=== PATIENT | male | born 1975 | race Caucasian/White ===

== ENCOUNTER 2020-03-16 14:36 | Outpatient (CLI) | payer OTHER, BC, SELFPAY ==
--- NOTE | ~2020-03-16 | XR_ITS ---
EXAMINATION: XR chest 2V 03/16/2020 15:07 INDICATION: Cough and fever. PROCEDURE: 2 view chest COMPARISON: No prior studies for comparison. FINDINGS: The lungs are clear. The cardiomediastinal silhouette is within normal limits. There are no pleural effusions. There is no pneumothorax suspected. IMPRESSION: 1: NO ACUTE CARDIOPULMONARY DISEASE. Reviewed, dictated and finalized at location A.
== END 2020-03-16 14:37 | disposition home or self-care (01) ==
PROVIDERS: PCP Emergency Medicine; Visit Provider Emergency Medicine
DX: R05 Cough (principal)
CPT/HCPCS: 71046

== ENCOUNTER 2020-05-10 14:03 | Outpatient (CLI) | payer OTHER, BC, SELFPAY ==
--- NOTE | 2020-05-14 15:02 | WPDPFTINT ---
PFT Interpretation PFT Interpretation: DOS: 05/10/2020 REQUESTING: Dr. Rodrigo Yeung REASON FOR TESTING: Cough PULMONARY FUNCTION TESTS Results are not reproducible. The patient struggled during testing, was coughing and was short of breath, and was not able to exhale for 6 seconds as required for reliable results. Spirometry: FEV1 is 85%, 3.13 L, normal. FVC is 73%, mildly decreased. FEV1% is 87%, normal. YUW54-16% is 111%, normal. The patient did not have increase in flows after bronchodilator admisinstration. Lung volumes: TLC is 88%< normal. RV is 113%, normal. RV/TLC is increased at 49% consistent with air trapping. Airway resistance is increased, 206%. Diffusion: DLCO is 93%, normal. Flow volume loop: Not reproducible. IMPRESSION: Results are not reproducible due to coughing during the test. Normal FEV1 with normal lung volumes, mild air trapping and increased airway resistance. No response to bronchodialtor. Lack of response to bronchodilator should not preclude use if clinically indicated. Reyna Garcia MD
== END 2020-05-10 14:04 | disposition home or self-care (01) ==
PROVIDERS: PCP Emergency Medicine; Visit Provider Emergency Medicine
DX: R05 Cough (principal)
CPT/HCPCS: 94060; 94726; 94729

== ENCOUNTER 2020-06-20 02:08 | Outpatient (CLI) | payer OTHER, BC, SELFPAY ==
[2020-06-20 18:20] LABS: SARS-CoV-2 RNA PCR Negative
== END 2020-06-20 02:09 | disposition home or self-care (01) ==
LOC: ANHCOVIDDT 02:09
PROVIDERS: PCP Emergency Medicine; Visit Provider Internal Medicine Gastroenterology
DX: Z01.812 Encounter for preprocedural laboratory examination (principal); Z11.59 Encounter for screening for other viral diseases
CPT/HCPCS: 87635; C9803; U0003

== ENCOUNTER 2020-06-22 01:37 | Day surgery (SDC) | payer OTHER, BC, SELFPAY ==
[2020-06-14 14:14] VITALS: BMI 30.9
[2020-06-22 08:54] VITALS: BP 130/89; PULSE 94; RESP 18; TEMP 37.1; O2SAT 95
[2020-06-22] MEDS: LACTATED RINGERS 1,000 ML 150 ML IV CONT (09:06)
--- NOTE | 2020-06-22 09:32 | WPDANESEPPF ---
Anes - Initial Pre Proc Eval Procedure: Operation Date: 06/22/20 09:30 Proposed Procedures p Esophagogastroduodenoscopy - Gilson Beverly MD Date/Time: 06/22/20 09:32 Surgeon: Gilson Beverly MD Pre Op Diagnosis: GERD Patient Data Age: 45 Gender: M Height: 5 ft 11 in Weight: 101.7 kg Last Vital Signs Temp 98.7 F 06/22/20 08:54 Pulse 94 06/22/20 08:54 Resp 18 06/22/20 08:54 BP 130/89 06/22/20 08:54 Pulse Ox 95 06/22/20 08:54 Allergies Allergy/AdvReac Type Severity Reaction Status Date / Time Penicillins Allergy Unknown Rash Verified 06/22/20 08:53 Home Medications Medication Instructions Recorded Confirmed Type fexofenadine 180 mg PO DAILY 06/14/20 06/22/20 History omeprazole magnesium [Prilosec OTC] 20 mg PO DAILY 06/14/20 06/22/20 History Patient hx anesthesia problems: none Family hx anesthesia problems: none FOR[facility] Past Medical History Medical History (Updated 06/22/20 @ 09:31 by Samy Mccray MD) GERD (gastroesophageal reflux disease) MOISES (obstructive sleep apnea) Social History Social History Smoking status: Never smoker Alcohol intake: current Anes - Eval Final PreProcedure Day of Procedure 06/22/20 09:32 Patient weight: obese Heart: regular rate and rhythm Lungs: clear to auscultation Airway: Mallampati scale Neurological: alert and oriented Last oral intake: >/= 8 hours ASA classification: III Emergent: no Anesthetic plan: proceed Anesthesia type and monitoring: general GIVS and standard monitoring Informed Consent: The patient's anesthetic plan and its attendant risks and benefits were discussed with the patient/family/POA. Questions were solicited and answers provided to the satisfaction of the patient/family/POA.
--- NOTE | 2020-06-22 09:35 | PM.HPGS ---
History of Present Illness History of Present Illness Consent: Risks, benefits, and alternatives have been discussed and questions answered. Patient agrees to proceed with procedure. Chief complaint: GERD Narrative: Mitul Nance is a 45 year old male with chronic acid reflux disease. He has been on Prilosec for over 20 years when he was diagnosed with reflux. If he skips that he has severe heartburn. Now, for the past 6 months, he has had a persistent cough. It is always worse in the morning. Occasionally brings up some white phlegm. He saw an ENT physician who ordered sleep studies. He has noted in the last couple of weeks that he has wheezing PMFSH Past Medical History Medical History GERD (gastroesophageal reflux disease) MOISES (obstructive sleep apnea) Social History Social History Smoking status: Never smoker Alcohol intake: current Meds Home Medications and Allergies Home Medications Medication Instructions Recorded Confirmed Type fexofenadine 180 mg PO DAILY 06/14/20 06/22/20 History omeprazole magnesium [Prilosec OTC] 20 mg PO DAILY 06/14/20 06/22/20 History Allergies Allergy/AdvReac Type Severity Reaction Status Date / Time Penicillins Allergy Unknown Rash Verified 06/22/20 08:53 Vital Signs Vital Signs - 24 hr 06/22/20 08:54 Temperature 37.1 C Pulse Rate 94 Respiratory Rate 18 Blood Pressure 130/89 Pulse Oximetry 95 Exam Const: General: alert Orientation/consciousness: patient oriented x3 Resp: Auscultation: clear to auscultation bilaterally Cardio: Rhythm: regular rhythm GI: GI Palp: Yes Soft to palpation and No Tenderness to palpation present (GI) Neuro: General: patient oriented x3 Assessment and Plan Assessment and plan (1) GERD (gastroesophageal reflux disease): Code(s): K21.9 - Gastro-esophageal reflux disease without esophagitis Status: Acute Assessment and Plan: EGD with possible biopsy or dilatation or cautery.
[2020-06-22] MEDS: BENZOCAINE (*SP) 60 ML SPRAY CAN (HURRICAINE) 1 SPRAY MUCOUS MEM (09:46)
[2020-06-22 10:00] VITALS: BP 120/69; PULSE 86; O2SAT 99
[2020-06-22 10:10] VITALS: BP 104/64; PULSE 88; O2SAT 99
[2020-06-22 10:20] VITALS: BP 108/67; PULSE 81; O2SAT 94
== END 2020-06-22 10:48 | disposition home or self-care (01) ==
PROVIDERS: PCP Emergency Medicine; Visit Provider Internal Medicine Gastroenterology
PROC: 0DJ08ZZ Inspection of Upper Intestinal Tract, Via Natural or Artificial Opening Endoscopic (ICD-10-PCS; CPT 43235; principal; 2020-06-22 09:30)
DX: K21.9 Gastro-esophageal reflux disease without esophagitis (principal); G47.33 Obstructive sleep apnea (adult) (pediatric); E66.9 Obesity, unspecified; Z68.31 Body mass index [BMI] 31.0-31.9, adult
CPT/HCPCS: 43239; 88305; J2704; J7120